=== PATIENT | male | born 1995 | race Caucasian/White ===

== ENCOUNTER 2023-12-09 16:28 | Emergency (ER) | payer BC, OTHER ==
[2023-12-09 16:50] VITALS: TEMP 97.3; O2SAT 98
--- NOTE | 2023-12-09 17:10 | ERPHSYRPT ---
- History of Present Illness Historian: patient, family Exam Limitations: no limitations Patient Subjective Stated Complaint: Abdominal pain Triage Nursing Assessment: Patient ambulated back to ED and transferred self to bed. Patient A+O X3. Patient's skin pink, warm and dry. Patient complains of mid to RUQ pain 5/10 with N/V and diarrhea on and off since August. Patient states his pain started earlier today. Rebound tenderness noted to RUQ. Timing/Duration: week(s) Abdominal Pain Onset Location: RUQ, RLQ, epigastric, periumbilical Pain Radiation: no radiation Severity of Pain-Max: mild Severity of Pain-Current: moderate Modifying Factors: Improves With: nothing Associated Symptoms: loss of appetite, nausea Previous symptoms: no prior history Hx Influenza Vaccination/Date Given: No Immunizations Up to Date: Yes <COLLNI MUSA - Last Filed: 12/09/23 18:38> <SHANAE JOSÉ - Last Filed: 12/09/23 19:52> - History of Present Illness Time Seen by Provider: 12/09/23 17:07 Physician History: Patient complains of mid to RUQ pain 5/10 with N/V and diarrhea on and off since August. Patient states his pain started earlier today. Rebound tenderness noted to RUQ. Patient is 28-year-old male otherwise healthy started having off-and-on abdominal pain mainly located in epigastric periumbilical right upper quadrant and right lower quadrant area. Pain usually last for 1 to 2 days and goes away. There is no relationship with any food. Patient denies any fever chills nausea or vomiting. (COLLIN MUSA) pt spouse is in ER as independent source to confirm Hx. discussed risk/benefit of CT with pt and family and labs CMP/CBC anbd they wish to proceed and these were ordered and discussed results with them. No CP or shortness of breath or dizziness. (SHANAE JOSÉ) Allergies/Adverse Reactions: No Known Drug Allergies Allergy (Unverified 12/09/23 16:36) Home Medications: No Reportable Medications [No Reported Medications] 12/09/23 [History] Travel Risk - International Travel Have you traveled outside of the country in past 3 weeks: No - Emerging Infectious Disease Are you exhibiting symptoms associated with any current EIDs: No <LENCHO Filed: 12/09/23 18:38> - Review of Systems Constitutional: No Fever, No Chills Eyes: No Symptoms Ears, Nose, & Throat: No Symptoms Respiratory: No Cough, No Dyspnea Cardiac: No Chest Pain, No Edema, No Syncope Abdominal/Gastrointestinal: Abdominal Pain, No Nausea, No Vomiting, No Diarrhea Genitourinary Symptoms: No Dysuria Musculoskeletal: No Back Pain, No Neck Pain Skin: No Rash Neurological: No Dizziness, No Focal Weakness, No Sensory Changes Psychological: No Symptoms Endocrine: No Symptoms All Other Systems: Reviewed and Negative < Filed: 12/09/23 18:38> - Past Medical History Pertinent Past Medical History: No Neurological History: No Pertinent History ENT History: No Pertinent History Cardiac History: No Pertinent History Respiratory History: No Pertinent History Endocrine Medical History: No Pertinent History Musculoskeletal History: No Pertinent History GI Medical History: No Pertinent History History: No Pertinent History Psycho-Social History: No Pertinent History Male Reproductive Disorders: No Pertinent History - Past Surgical History Past Surgical History: No Neuro Surgical History: No Pertinent History Cardiac: No Pertinent History Respiratory: No Pertinent History Gastrointestinal: No Pertinent History Genitourinary: No Pertinent History Musculoskeletal: No Pertinent History Male Surgical History: No Pertinent History - Social History Smoking Status: Never smoker Exposure to second hand smoke: No Drug Use: none < Filed: 12/09/23 18:38> - Physical Exam General Appearance: no apparent distress, alert Eye Exam: PERRL/EOMI, eyes nml inspection Ears, Nose, Throat Exam: normal ENT inspection, pharynx normal, moist mucous membranes Neck Exam: normal inspection, non-tender, supple, full range of motion Respiratory Exam: normal breath sounds, lungs clear, No respiratory distress Cardiovascular Exam: regular rate/rhythm, normal heart sounds Gastrointestinal/Abdomen Exam: soft, tenderness (RUQ, Periumbilical), No mass Back Exam: normal inspection, normal range of motion, No CVA tenderness, No vertebral tenderness Extremity Exam: normal inspection, normal range of motion, pelvis stable Neurologic Exam: alert, oriented x 3, cooperative, normal mood/affect, nml cerebellar function, sensation nml, No motor deficits Skin Exam: normal color, warm, dry SpO2: 98 <LENCHO,COLLIN - Last Filed: 12/09/23 18:38> - Nursing Vital Signs Nursing Vital Signs: Initial Vital Signs Temperature 97.3 F 12/09/23 16:38 Pulse Rate 70 12/09/23 16:38 Respiratory Rate 20 12/09/23 16:38 Blood Pressure 152/85 12/09/23 16:38 O2 Sat by Pulse Oximetry 98 12/09/23 16:38 Pain Scale Pain Intensity 5 - Course Nursing assessment & vital signs reviewed: Yes - CT Exams Abdomen/Pelvis CT Interpretation: Tele-radiologist Report <COLLIN MUSA - Last Filed: 12/09/23 18:38> - CT Exams Abdomen/Pelvis CT Interpretation: Tele-radiologist Report, No appendicitis, Other (liver nodule) <SHANAE JOSÉ - Last Filed: 12/09/23 19:52> Ordered Tests: Active Orders 24 hr Category Date Time Status ABDOMEN AND PELVIS W&WO CONTRA [CT] Stat Exams 12/09/23 17:06 Completed AMYLASE Stat Lab 12/09/23 17:18 Completed CBC W DIFF Stat Lab 12/09/23 17:18 Completed CMP Stat Lab 12/09/23 17:18 Completed LIPASE Stat Lab 12/09/23 17:18 Completed Medication Summary Discontinued Medications Generic Name Dose Route Start Last Admin Trade Name Freq PRN Reason Stop Dose Admin Sodium Chloride 1,000 mls @ 999 mls/hr 12/09/23 17:06 12/09/23 18:17 Sodium Chloride 0.9% 1000 Ml IV 12/09/23 18:06 Infused .Q1H1M STA Infusion Sodium Chloride Confirm 12/09/23 17:11 Sodium Chloride 0.9% 1000 Ml Administered 12/09/23 17:12 Dose 1,000 mls @ ud .ROUTE .STK-MED ONE Sodium Chloride 1,000 mls @ 999 mls/hr 12/09/23 17:37 12/09/23 18:40 Sodium Chloride 0.9% 1000 Ml IV 12/09/23 18:37 999 mls/hr .Q1H1M STA Administration Sodium Chloride Confirm 12/09/23 18:39 Sodium Chloride 0.9% 1000 Ml Administered 12/09/23 18:40 Dose 1,000 mls @ ud .ROUTE .STK-MED ONE Lab/Rad Data: Laboratory Result Diagrams 12/09/23 17:18 12/09/23 17:18 Laboratory Results 12/09/23 12/09/23 Range/Units 17:18 17:18 WBC 5.7 (4.0-10.5) x10^3/uL RBC 5.16 (4.1-5.6) x10^6/uL Hgb 15.2 (12.5-18.0) g/dL Hct 44.7 (42-50) % MCV 86.6 (78-100) fL MCH 29.5 (26-32) pg MCHC 34.0 (32-36) g/dL RDW 11.4 L (11.5-14.0) % Plt Count 221 (150-450) x10^3/uL MPV 10.7 (7.5-11.0) fL Gran % 50.8 (36.0-66.0) % Immature Gran % (Auto) 0.2 (0.00-0.4) % Nucleat RBC Rel Count 0.0 (0.00-0.1) % Eos # (Auto) 0.15 (0-0.5) x10^3/uL Immature Gran # (Auto) 0.01 (0.00-0.03) x10^3u/L Absolute Lymphs (auto) 2.23 (1.0-4.6) x10^3/uL Absolute Monos (auto) 0.37 (0.0-1.3) x10^3/uL Absolute Nucleated RBC 0.00 (0.00-0.01) x10^3u/L Lymphocytes % 38.9 (24.0-44.0) % Monocytes % 6.5 (0.0-12.0) % Eosinophils % 2.6 (0.00-5.0) % Basophils % 1.0 (0.0-0.4) % Absolute Granulocytes 2.91 (1.4-6.9) x10^3/uL Basophils # 0.06 (0-0.4) x10^3/uL Sodium 140 (135-145) mmol/L Potassium 4.0 (3.5-5.1) mmol/L Chloride 105 (98-107) mmol/L Carbon Dioxide 28 (22-30) mmol/L Anion Gap 11.2 (5-15) MEQ/L BUN 23 H (9-20) mg/dL Creatinine 1.59 H (0.66-1.25) mg/dL Estimated GFR 60.6 ML/MIN Glucose 96 (74-106) mg/dL Calcium 9.8 (8.4-10.2) mg/dL Total Bilirubin 0.50 (0.2-1.3) mg/dL AST 27 (17-59) U/L ALT 26 (0-50) U/L Alkaline Phosphatase 103 (38-126) U/L Serum Total Protein 7.5 (6.3-8.2) g/dL Albumin 4.4 (3.5-5.0) g/dL Amylase 113 H (30-110) U/L Lipase 62 (23-300) U/L - Progress Progress: improved <COLLIN MUSA - Last Filed: 12/09/23 18:38> - Progress Progress: improved, re-examined Counseled pt/family regarding: lab results, diagnosis, need for follow-up, rad results <SHANAE JOSÉ - Last Filed: 12/09/23 19:52> - Progress Progress Note: 12/09/23 18:50 Pt taken over at change of shift after discussion of pending CT to make sure no complications, labs, and dispo to f/u PMD with US this week if all else well. And intro to pt and family. 12/09/23 19:41 pt and family advised that we have not yet determined the precise cause for his symptoms and that a variety of additional things may be evolving undetected including cardiac, abdominal, vascular, pancreatic and need further w/u with his PMD. He has no current pain or symptoms and they wish to f/u outpt rather than further eval in ER at this time and have the capacity to make this choice. Pt and family are advised to f/u for elevated RFTs, Amylase, and liver nodule on CT with PMD also for further w/u. (SHANAE JOSÉ) Medical Desision Making - Independent Historian Additional History obtained from: Spouse - Discussion of managment Reviewed:: Test results, Need for additional workup Agreed on:: Treatment plan, need for follow-up - Diagnostic Testing Diagnostic test were ordered, analyzed, and reviewed by me: Yes Radiological Interpretation: Reviewed by me - Risk of complications The pt has a high risk of morbidity or mortality based on: Decision regarding hospitilization or escalation of hosp level of care <SHANAE JOSÉ - Last Filed: 12/09/23 19:52> <LENCHOCOLLIN - Last Filed: 12/09/23 18:38> - Departure Departure Disposition: Home Critical Care Time: No <SHANAE JOSÉ - Last Filed: 12/09/23 19:52> - Departure Clinical Impression: Abdominal pain of unknown cause Condition: Good Referrals: DOCTOR,NO FAMILY [Primary Care Provider] - Follow up/PCP as directed Instructions: Abdominal pain, Renal Function Panel, Amylase Test Additional Instructions: you have a liver nodule on the CT which should be followed up with your Dr. You have elevated amylase which sometimes is due to pancreas irritation but can have other causes and should be followed up with your Dr. You have elevated blood pressure readings and kidney tests also to be followed up with your Dr. We did not confirm a specific cause for your pain so it is important to complete your followup with your Dr. to determine the precise cause and be aware that other things could still be developing undetected including heart, stomach, vascular or others not yet suspected or found. - so return meantime if any symptoms of concern.
[2023-12-09] MEDS ORDERED: Sodium Chloride 0.9% 1000 ML 1,000 ML ONE ×2 (17:11→18:39)
[2023-12-09] MEDS: Sodium Chloride 0.9% 1000 ML 1,000 ML IV STA ×2 (17:12→18:40)
[2023-12-09 17:21] LABS: Absolute Neutrophil Ct (ANC) 2.91 x10^3/uL (1.4-6.9); Basophil (Absolute #) 0.06 x10^3/uL (0-0.4); Eosinophil % 2.6 % (0.00-5.0); Eosinophil (Absolute #) 0.15 x10^3/uL (0-0.5); Hematocrit 44.7 % (42-50); Hemoglobin 15.2 g/dL (12.5-18.0); IMMATURE GRAN # 0.01 x10^3u/L (0.00-0.03); IMMATURE GRAN % 0.2 % (0.00-0.4); Lymphocyte (Absolute #) 2.23 x10^3/uL (1.0-4.6); Lymphocytes % 38.9 % (24.0-44.0); Mean Cell Volume 86.6 fL (78-100); Mean Corpuscular Hemoglobin 29.5 pg (26-32); Mean Platelet Volume 10.7 fL (7.5-11.0); Monocyte (Absolute #) 0.37 x10^3/uL (0.0-1.3); Monocytes % 6.5 % (0.0-12.0); Neutrophil % 50.8 % (36.0-66.0); Platelet Count 221 x10^3/uL (150-450); Red Blood Count 5.16 x10^6/uL (4.1-5.6); Red Cell Distribution Width 11.4 % (11.5-14.0); White Blood Count 5.7 x10^3/uL (4.0-10.5)
[2023-12-09 17:26] LABS: ALBUMIN 4.4 g/dL (3.5-5.0); ANION GAP 11.2 MEQ/L (5-15); BILIRUBIN,TOTAL 0.5 mg/dL (0.2-1.3); Calcium 9.8 mg/dL (8.4-10.2); Creatinine 1 1.59 mg/dL (0.66-1.25); EST GLOMERULAR FILTRATION RATE 60.6 ML/MIN; Total Protein 7.5 g/dL (6.3-8.2)
[2023-12-09 18:05] VITALS: BP 131/92; PULSE 62; RESP 18
--- NOTE | 2023-12-09 18:50 | XRAY ---
CLINICAL HISTORY: epigastric and periumbilical pain COMPARISON: None. TECHNIQUE: Axial CT scan of the abdomen and pelvis was performed with and without IV contrast. 80 cc isovue 370 was given. Coronal and sagittal reformats were also obtained. One of the following dose reduction techniques were utilized for this exam: Automated exposure control, adjustment of the mA and/or kV according to patient size, use of iterative reconstruction. FINDINGS: The liver is normal in size. A tiny hypodensity in segment VII of the liver of 2mm ( Series 3; image 15) . No other focal parenchymal abnormality. The intrahepatic biliary radicals and the bile ducts are normal. The spleen is slightly enlarged measuring 14 cm craniocaudally. The pancreas and adrenal glands are unremarkable. The kidneys are unremarkable. They are normal in size and shape. No calculi or hydronephrosis is seen. The gallbladder is normal. No pericholecystic fluid collection or radio-dense calculi in the gall bladder. The ascending colon, the transverse colon, the descending colon, visualized small bowel loops are unremarkable. The appendix is unremarkable. There are small volume mesenteric lymph nodes noted. Urinary bladder appear unremarkable. No ascites and bowel obstruction is noted. The osseous structures in the lower rib cage and lumbar spine show no abnormality. Covered lung bases appear clear. IMPRESSION: 1. No acute abnormality seen. 2. A tiny hypodense lesion within segment VIIof the liver, too small to characterize. 3. Borderline splenomegaly Electronically Signed by: Erica Lopez MD. (12/09/2023 18:46:22 EDT)
== END 2023-12-09 20:16 | disposition home or self-care (01) ==
LOC: ED 16:28
DX: R10.11 Right upper quadrant pain (principal); R10.13 Epigastric pain; R10.33 Periumbilical pain; R10.31 Right lower quadrant pain
CPT/HCPCS: 36415; 74178; 80053; 82150; 83690; 85025; 96360; 96361; 99284